=== PATIENT | female | born 1955 | race Two or more races ===

== ENCOUNTER 2018-07-23 08:55 | Day surgery (SDC) | payer OTHER | END 2018-07-23 13:05 | disposition home or self-care (01) | LOC: AMB-ENDOS 08:55 | DX: D12.5 Benign neoplasm of sigmoid colon (principal); K57.32 Diverticulitis of large intestine without perforation or abscess without bleeding; K64.2 Third degree hemorrhoids ==

== ENCOUNTER 2018-08-25 07:34 | Outpatient (CLI) | payer OTHER | END 2018-08-25 07:39 | disposition home or self-care (01) | LOC: RAD 07:34 | DX: K92.1 Melena (principal); K57.32 Diverticulitis of large intestine without perforation or abscess without bleeding ==